=== PATIENT | male | born 1970 | race Caucasian/White ===

== ENCOUNTER 2020-11-06 00:19 | Emergency (ER) | payer OTHER ==
[~2020-11-06] VITALS: Ht 167.6 cm; Wt 72.6 kg
--- NOTE | ~2020-11-06 | EMS ---
[facility] [address] [place] [address] EMS Patient Care Report Name: ALIVIA COURTNEY Room #: DEP LORRI Jenkins#: [id number] Admission: 11/06/20 Attend Phys: Discharge: 11/06/20 Date of : 70 Report #: [id number] THIS REPORT FOR: //name// Report Transmitted: 11/07/2020 11:55 EMS Care Summary [place], [place]/[facility] Incident [id number] @ 11/05/2020 23:43 Incident Location [address] [place] [id number] Patient ALIVIA COURTNEY Male, 49 Years 1970 Patient Address homeless Patient History Stroke/CVA,Arthritis,Alcohol Abuse, Patient Allergies No known allergies, Patient Medications Mobic, Ibuprofen, Chief Complaint ETOH intoxication Disposition Transported No Lights/[place] Dispatch Reason Sick Person Transported To [facility] Narrative Upon arrival PT was sitting in the upright position on sidewalk of bus stop. PT had a CC of ETOH intoxication. PT was assisted into back of ambulance for further medical evaluation and intervention. PT was then monitored for any change in condition while en route. [facility] [address] [place] [address] EMS Patient Care Report Name: ALIVIA COURTNEY Room #: DEP LORRI Jenkins#: [id number] Admission: 11/06/20 Attend Phys: Discharge: 11/06/20 Date of : 70 Report #: [id number] Initial Vitals @23:58P: 99,R: 18,BP: 138/91,Pain: 0/10,GCS: 15,Glucose: 107,SpO2: 96,Revised Trauma: 12, @00:05R: 18,BP: 132/82,Pain: 0/10,GCS: 14,SpO2: 97,Revised Trauma: 12, Assessments @23:56MENTAL:Person Oriented,Other,Place Oriented,Time Oriented,Event Oriented,SKIN:No Abnormalities,HEENT:Head/Face: No Abnormalities,Eyes: No Abnormalities,Neck/Airway: No Abnormalities,LUNG SOUNDS:General: No Abnormalities,Left Upper: No Abnormalities,Right Upper: No Abnormalities,Left Lower: No Abnormalities,Right Lower: No Abnormalities,ABDOMEN:General: No Abnormalities,Left Upper: No Abnormalities,Right Upper: No Abnormalities,Left Lower: No Abnormalities,Right Lower: No Abnormalities,PELVIS//GI:No Abnormalities,EXTREMITIES:Capillary Refill: Right Upper: < 2 Sec,Capillary Refill: Left Upper: < 2 Sec,PULSE:Radial: 2+ Normal,NEURO:No Abnormalities, Impression Alcohol use Procedures @23:56ALS AssessmentResponse: UnchangedSucceeded Timeline 23:40,Dispatch Notified 23:43,Dispatched 23:46,En Route 23:55,On Scene 23:56,At Patient 23:56,ALS Assessment,Response: UnchangedSucceeded, 23:58,BP: 138/91 M,PULSE: 99,RR: 18 R,SPO2: 96 Ox,ETCO2: ,B,PAIN: 0,GCS: 15, 00:03,Depart Scene 00:05,BP: 132/82 M,PULSE: ,RR: 18 R,SPO2: 97 Ox,ETCO2: ,BG: ,PAIN: 0,GCS: 14, 00:14,At Destination 00:20,Call Closed 23:40,Call Received Disclaimer v1.1 Copyright 2020 [employer] This EMS Care Summary contains data elements from the applicable legal record (which may be displayed differently). It is designed to provide pertinent information for the following purposes: continuity of care, clinical quality, and state data reporting. The complete legal record is available to ED staff and administrators of the receiving hospital in [employer]'s Patient Tracker. All data is provided "as is."
[2020-11-06 04:48] VITALS: BP 134/81
== END 2020-11-06 05:46 | disposition home or self-care (01) ==
LOC: ER 00:19
DX: F10.129 Alcohol abuse with intoxication, unspecified (principal); Y90.9 Presence of alcohol in blood, level not specified